=== PATIENT | male | born 2000 | race American Indian/Alaskan Native ===

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

== ENCOUNTER 2022-04-10 13:40 | Emergency (ER) | payer BC ==
[2022-04-10] MEDS ORDERED: Dexamethasone 4 MG Tab PO ONE (13:41)
[2022-04-10] MEDS ORDERED: Cyclobenzaprine 10 MG Tab PO ONE (13:41)
[2022-04-10] MEDS ORDERED: Cyclobenzaprine 10 MG Tab ONE (14:33)
[2022-04-10] MEDS ORDERED: Dexamethasone 2 MG Tab ONE (14:33)
== END 2022-04-10 14:44 | disposition home or self-care (01) ==
LOC: DL.ED 13:40
DX: M26.622 Arthralgia of left temporomandibular joint (principal); M79.18 Myalgia, other site; E66.9 Obesity, unspecified; Z68.43 Body mass index [BMI] 50.0-59.9, adult
CPT/HCPCS: 99283; A9270-GY; J8540